=== PATIENT | male | born 1955 ===

== ENCOUNTER 2025-06-14 08:37 | Outpatient (CLI) | payer MEDICARE, SELFPAY ==
[2025-06-14 08:56] LABS: Hematocrit 34.4 % (42.0-52.0); Hemoglobin 10.9 g/dL (14.1-18.0); Immature Granulocytes % 0.4 %; Mean Corpuscular HGB Conc 31.7 g/dL (31.8-35.4); Mean Corpuscular Hemoglobin 27.1 pg (27.0-31.2); Mean Corpuscular Volume 85.6 fl (80-94); Nucleated Red Blood Cells % 0 %; Platelet Count 272 K/mm3 (142-424); Red Blood Count 4.02 M/mm3 (4.60-6.20); Red Cell Distribution Width-SD 61.5 fL; White Blood Count 7.4 K/mm3 (4.8-10.8)
[2025-06-14 09:21] LABS: Alanine Aminotransferase 12 U/L (12-78); Albumin Level 3.7 g/dl (3.5-5.0); Albumin/Globulin Ratio 0.9 (1.1-1.8); Alkaline Phosphatase 108 U/L (38-126); Anion Gap 11.4 mEq/L (5-15); Aspartate Amino Transferase 25 U/L (17-59); Bilirubin,Total 0.3 mg/dl (0.2-1.3); Blood Urea Nitrogen 15 mg/dl (9-20); Calcium 10.0 mg/dl (8.4-10.2); Carbon Dioxide 26 mmol/L (22.0-30.0); Chloride 99 mmol/L (98-107); Cholesterol 132 mg/dl (140-200); Creatinine,Serum 0.80 mg/dl (0.66-1.25); Estimated Glomerular Filt Rate 96 ml/min (>60); GFR (African American) 117 ML/MIN (>60); Globulin 4.2 g/dL (1.3-3.2); Glucose 78 mg/dl (74-100); HDL Cholesterol 28 mg/dl (40-60); Iron 45 ug/dL (49-181); Potassium 4.4 mmoL/L (3.5-5.1); Sodium 132 mmol/L (136-145); Total Protein,Serum 7.9 g/dl (6.3-8.2); Triglycerides 66 mg/dl (30-150)
[2025-06-14 09:35] LABS: Total Iron Binding Capacity 217 ug/dL (261-462)
[2025-06-14 09:38] LABS: Free T4 (Free Thyroxine) 1.49 ng/dl (0.78-2.19)
[2025-06-14 09:56] LABS: Thyroid Stimulating Hormone 0.34 uIU/mL (0.465-4.68)
[2025-06-14 10:00] LABS: Ferritin 157 ng/ml (17.9-464)
[2025-06-14 10:15] LABS: Vitamin B12 267 pg/mL (239-931)
[2025-06-14 10:31] LABS: Folate > 20.00 ng/mL
== END 2025-06-14 23:59 | disposition home or self-care (01) ==
LOC: LAB.DROPOF 08:38
PROVIDERS: PCP Family Medicine; Visit Provider Family Medicine
DX: D64.9 Anemia, unspecified (principal); I10 Essential (primary) hypertension
CPT/HCPCS: 36415; 80053; 80061; 82607; 82728; 82746; 83540; 83550; 84439; 84443; 85025